=== PATIENT | male | born 1965 | race Caucasian/White ===

== ENCOUNTER → 2017-01-18 06:15 | Day surgery (SDC) | payer OTHER ==
--- NOTE | 2017-01-13 01:31 | HP ---
HISTORY AND PHYSICAL: DATE OF ADMISSION: 01/18/17 She will be in coming into [facility] on 01/18/17 for right knee arthroscopic surgery. CHIEF COMPLAINT: Right knee pain, popping, cracking. HISTORY OF PRESENT ILLNESS: The patient has had right knee problems over many months, at times the right knee feels in the medial joint like something is completely out of place and then it takes a while for it to go back into place. He has had an MRI scan showing a meniscal tear and we have recommended arthroscopic surgery. His knee problems are work related. PAST MEDICAL HISTORY: No heart attack. No chest pain. He is able to walk up 2 flights of stairs without chest pain and without shortness of breath. No allergies. No bleeding tendencies. He has not had any liver or stomach problems. MEDICATIONS: Daily medications, none. PHYSICAL EXAMINATION GENERAL: Well nourished, well developed. He is a little overweight. Cranial nerves are grossly intact. HEENT: Head is NC/AT. LUNGS: Clear bilaterally. HEART: Regular. S1, S2 normal. No murmurs or gallops. ABDOMEN: Round, soft, nontender. There is no organomegaly. MUSCULOSKELETAL: The right knee shows varus tenderness medial, nontender anteriorly and posteriorly, slightly tender laterally. MCL and LCL are stable. Rebecca and posterior drawer are normal. The thigh and calf are soft. Dorsalis pedis pulses 2+. No swelling of his right leg, ankle and foot. IMPRESSION: Right knee medial meniscal tearing. He has some medial arthritis. We have recommended right knee arthroscopic surgery. Goals, risks and complications of surgical care were reviewed with him and his questions were answered and we have not made guarantees about the outcome. For postoperative pain management, he will be utilizing [place] 5/325 mg, a script for 30 has been done, and he knows to use ibuprofen as needed. We will recheck 8 to 12 days after the arthroscopic surgery. [id number]/[facility] #: [id number] PAWEL
[~2017-01-18 06:15] MED LIST: Buffered Lidocaine 1% SYR 3ML* 3 ML/SYR SYRINGE INTRADERM ONE; Bupivacaine 0.5% W/EPI SDV* 30 ML VIAL ONE; Dexamethasone IV* 4 MG/ML 1 ML (4 MG) ONE; DiMENhydriNATE IV* 50 MG/ML VIAL IV PUSH PRN; HYDROcodone/ACETAMIN 5-325 MG* 1 TAB PO PRN; HYDROmorphone INJ* 1 MG/ML CARPUJECT SYRINGE IV PRN; Ketorolac INJ* 30 MG/ML 1 ML VIAL ONE; Midazolam* 1 MG/ML 5 ML VIAL (5 MG) ONE; Ondansetron INJ* 2 MG/ML VIAL IV PRN; Ondansetron INJ* 2 MG/ML VIAL ONE; Propofol* 10 MG/ML 20 ML BTL IV PUSH ONE; ceFAZolin 2 GM PREMIX (*) 2 GM/50 ML BAG IVPB ONE; fentaNYL* 50 MCG/ML 2 ML VIAL (100 MCG VIAL) IV PRN; fentaNYL* 50 MCG/ML 2 ML VIAL (100 MCG VIAL) ONE; oxyCODONE TAB* 5 MG TAB PO PRN
[2017-01-18 09:20] VITALS: BP 139/87
--- NOTE | 2017-01-18 21:26 | OP ---
DATE OF OPERATION: 01/18/17 - [facility] DATE OF : 65 SURGEON: Gregory Mcmahan MD COLD ROLLING COORDINATOR: JACQUELIN Reyes ANESTHESIOLOGIST: Dr. Johann Ricks. ANESTHESIA: LMA, general. PRE-OP DIAGNOSIS: Right knee medial meniscus tear and medial arthritis. POST-OP DIAGNOSIS: Right knee medial meniscus tear and medial arthritis. OPERATIVE PROCEDURE: Right knee partial medial meniscectomy and chondroplasty, medial femoral condyle. COMPLICATIONS: There were no complications. DRAINS: There were no drains. ESTIMATED BLOOD LOSS: 20 mL. REPLACEMENT: Crystalloid fluids. OPERATIVE INDICATIONS: Knee pain. MRI scan showing meniscal tear and arthritic change. Because of persistive problems, arthroscopic surgery was recommended. DESCRIPTION OF PROCEDURE: The patient was brought to the operating room and placed on the operating room table in a supine position. Following the administration of general anesthetic, the right leg was wrapped with a proximal thigh tourniquet and then after a preliminary chlorhexidine prep at the knee, the leg was given a prep from the tourniquet to the ankle and then draped free and carefully sealed off in the usual fashion for arthroscopic surgery of the knee. The leg, ankle, and foot portion was sealed off with an impermeable drape with a Vi-Drape wrapped around the calf at the top of that. We did our universal protocol time-out confirming Spencer Hernandez and a plan for right knee arthroscopic surgery. We all agreed and we proceeded. The right knee was aspirated superolateral to the patella obtaining 1 ounce of clear straw -colored synovial fluid and I did not think that this had to be sent for studies. The knee was set up arthroscopy with the arthroscope. The leg was exsanguinated, the tourniquet elevated to 275. The knee was then set up for arthroscopy with the arthroscope lateral to the patellar tendon, probe and operating instruments medial to the patellar tendon and an in-flow catheter superomedial to the patella. The survey of the joints show that the patellofemoral cartilage had yellowing and some thinning, but no gross flaps or large cartilage loss. The patella and trochlea were both evaluated carefully. The lateral medial gutters showed some debris adherent to the synovial lining and some of this debris irrigated out as we proceeded with the case and at the start of the case when we irrigated with saline. The lateral femoral condyle, lateral meniscus lateral tibial plateau, some yellowing of cartilage, but no gross tearing. The same with the lateral meniscus. The ACL and PCL were satisfactory. There was some anterior synovitis. A little bit of synovectomy was completed out. The medial femoral condyle had cartilage loss showing some bone, no large flap tears and the loose cartilage on the medial femoral condyle was shaved smooth. The medial tibial plateau wear, but no gross flaps or need for surgical care. The medial meniscus had been torn at the root. The posterior flap was somewhat loose, this was trimmed back with shaver and baskets to stable posterior rim. Care was taken not to leave basketted debris in the knee including medially and posteromedially and the final photographs were obtained. The tourniquet was deflated. The knee was irrigated with another 3 L of saline irrigation solution, then emptied, then instilled with Marcaine 0.5% with epinephrine 28 to 30 mL. The skin portals were closed with interrupted 3-0 Surgipro, and the skin was washed and dried and covered with Betadine-soaked release followed by sterile gauze, sterile Webril, cryotherapy cuff, ABD pads, and a 6-inch Quinn bandage loosely applied. The patient was returned to the recovery room in stable and satisfactory condition having tolerated the procedure very well. [id number]/[facility] #: [id number] PAWEL
== END | disposition home or self-care (01) ==
LOC: OR 06:15
PROVIDERS: ATTEND Orthopaedic Surgery
DX: M23.203 Derangement of unspecified medial meniscus due to old tear or injury, right knee (principal); M17.11 Unilateral primary osteoarthritis, right knee; M19.90 Unspecified osteoarthritis, unspecified site; F17.200 Nicotine dependence, unspecified, uncomplicated
CPT/HCPCS: 88304; J0690; J1100; J1885; J2250; J2405; J2704; J3010

== ENCOUNTER 2020-01-26 07:17 | Emergency (ER) | payer SELFPAY ==
[2020-01-26 07:22] VITALS: BP 105/78
--- NOTE | 2020-01-26 07:56 | ED ---
Complex/Multi-Sys Presentation - HPI Summary HPI Summary: This patient is a 54 year old M presenting to [facility] accompanied by with a chief complaint of trouble dysphagia, and trouble eating since 5 weeks ago. At first pt reports he would gag and throw up spit (not stomach content) when eating. Now when pt eats he throw everything up. Pt can drink liquid, however carbonation bothers pt . Pt has lost 20 llbs over last 5 weeks. Pt has not ate solid food for 3 days. Patient denies vomiting outside of eating, diarrhea, and constipation. Pt reports at the beginning stool was dark and hard, but now pt is defecating normally. Pt has not had an endoscopy, or colonoscopy. Pt has not drank alcohol in the last 5 weeks but before would have 6-12 drinks a day. Pt smokes cigarettes and marijuana once in a while. Pt had knee surgery previously. Medications reviewed. Allergies noted. - History Of Current Complaint Chief Complaint: EDGeneral Time Seen by Provider: 01/26/20 07:31 Hx Obtained From: Patient Onset/Duration: Gradual Onset, Lasting Weeks, Still Present Timing: Constant Aggravating Factor(s): Eating Alleviating Factor(s): Nothing Associated Signs And Symptoms: Positive: Vomiting, Decreased Oral Intake. Negative: Diarrhea, Other - Constipation - Allergies/Home Medications Allergies/Adverse Reactions: Allergies Allergy/AdvReac Type Severity Reaction Status Date / Time No Known Allergies Allergy Verified 01/26/20 07:22 Home Medications: Home Medications Naproxen Sodium [Aleve] 2 tab PO Q8H PRN 01/27/16 [History Confirmed 01/18/17] PMH/Surg Hx/FS Hx/Imm Hx Endocrine/Hematology History: Denies: Hx Diabetes Cardiovascular History: Denies: Hx Hypertension, Hx Pacemaker/ICD History: Reports: Hx Kidney Stones - 20 years ago, passed Denies: Hx Renal Disease Musculoskeletal History: Reports: Hx Arthritis - BILATERAL KNEES Sensory History: Reports: Hx Contacts or Glasses - glasses for distance Denies: Hx Hearing Aid Opthamlomology History: Reports: Hx Contacts or Glasses - glasses for distance Psychiatric History: Denies: Hx Panic Disorder - Surgical History Surgery Procedure, Year, and Place: REMOVAL OF SEWING NEEDLE FROM RIGHT FOOT AGE 4 OR 5,. LEFT KNEE - ARTHROSCOPIC -2015, [facility] [place] Anesthesia Reactions: No Infectious Disease History: No Infectious Disease History: Denies: History Other Infectious Disease, Traveled Outside the [place] in Last 30 Days - Family History Known Family History: Positive: None Negative: Hypertension, Diabetes - Social History Occupation: Unemployed Lives: With Family Alcohol Use: Weekly Alcohol Amount: WEEKENDS ONLY Substance Use Type: Reports: None Smoking Status (MU): Heavy Every Day Tobacco Smoker Type: Cigarettes Amount Used/How Often: 1 ppd FOR ABOUT 30 YEARS Length of Time of Smoking/Using Tobacco: 30 YEARS Have You Smoked in the Last Year: Yes Review of Systems Positive: Other - dysphagia, decreased oral intake Positive: Vomiting. Negative: Diarrhea, Other - Constipation All Other Systems Reviewed And Are Negative: Yes Physical Exam - Summary Physical Exam Summary: Constitutional: Well-developed, Well-nourished, Alert. (-) Distressed Skin: Warm, Dry HENT: Normocephalic; Atraumatic Eyes: Conjunctiva normal Neck: Musculoskeletal ROM normal neck. (-) JVD, (-) Stridor, (-) Tracheal deviation Cardio: Rhythm regular, rate normal, Heart sounds normal; Intact distal pulses; Radial pulses are 2+ and symmetric. (-) Murmur Pulmonary/Chest wall: Effort normal. (-) Respiratory distress, (-) Wheezes, (-) Rales Abd: Soft, (-) tenderness, (-) Distension, (-) Guarding, (-) Rebound Musculoskeletal: (-) Edema Lymph: (-) Cervical adenopathy Neuro: Alert, Oriented x3 Psych: Mood and affect Normal Triage Information Reviewed: Yes Vital Signs On Initial Exam: Initial Vitals Temp Pulse Resp BP Pulse Ox 98.5 F 102 19 105/78 100 01/26/20 07:19 01/26/20 07:19 01/26/20 07:19 01/26/20 07:19 01/26/20 07:19 Vital Signs Reviewed: Yes Procedures - Sedation Patient Received Moderate/Deep Sedation with Procedure: No Diagnostics - Vital Signs Vital Signs Temp Pulse Resp BP Pulse Ox 01/26/20 07:19 98.5 F 102 19 105/78 100 - Laboratory Result Diagrams: 01/26/20 08:15 01/26/20 08:15 Lab Statement: Any lab studies that have been ordered have been reviewed, and results considered in the medical decision making process. - Radiology CT Chest/Abdomen/Pelvis Radiology Interpretation Completed By: Radiologist Summary of Radiographic Findings: CT Chest/Abdomen/Pelvis reveals, per radiologist 1. There is a large mid-level paraesophageal soft tissue focus, likely a lymph node, measuring 1 x 2.4 cm in the axial plane in the presence of wall thickening of the distal esophagus that extends across the gastroesophageal junction to involve the superior most wall of the gastric antrum. The differential diagnosis includes esophagitis versus neoplasm. Particularly in the presence of unintentional weight loss and dysphagia with cancer risk factors, direct visualization with endoscopy is recommended. 2. There is a small amount of the canal free fluid in the pelvis of indeterminate clinical significance, though this is not considered a normal finding in an adult male. ED physician has reviewed this radiology report. Re-Evaluation - Re-Evaluation First Eval Re-Evaluation Time: 11:25 Comment: offered Admission, declined will follow up with Dr. Thomason on Tuesday Complex Multi-Symp Course/Dx Course Of Treatment: Patient's here progressive dysphagia over the past 5 weeks. Patient has lost 20 pounds in weight. Patient had blood performed which showed anemia of 11.9 with no prior to compare to. Patient had a CT scan of his chest last abdomen/pelvis which showed thickening of the distal esophagus and paraesophageal lymphadenopathy. Given patient's risk factors and history, patient's scan is concerning for esophageal carcinoma. GI was called and will follow-up with patient on Tuesday. Patient was offered admission but declined. - Diagnoses Provider Diagnoses: Esophageal mass, Dysphagia - Physician Notifications Discussed Care Of Patient With: Ajit Thomason Time Discussed With Above Provider: 11:28 Instructed by Provider To: Other - Dr. Thomason, could scope him on Tuesday, and there is a chance of bringing him in as a outpatient Discharge ED - Sign-Out/Discharge Documenting (check all that apply): Patient Departure - Discharge - Discharge Plan Condition: Stable Disposition: HOME Patient Education Materials: Dysphagia (ED) Referrals: Ajit Thomason MD [Medical Doctor] - 01/28/20 Additional Instructions: Drink pureed foods, ensure is a good sources of vitamins and calories. Call Dr. Alcazar on 01/28/20 for an appointment next week. Return to the ED for any new or worsening symptoms. - Billing Disposition and Condition Condition: STABLE Disposition: Home - Attestation Statements Document Initiated by Scribe: Yes Documenting Scribe: Sandra Zurita Provider For Whom Scribe is Documenting (Include Credential): Mario Mustafa Scribe Attestation: ISandra, scribed for Mario Mustafa on 01/26/20 at 1230. Scribe Documentation Reviewed: Yes Provider Attestation: The documentation as recorded by the Sandra arias accurately reflects the service I personally performed and the decisions made by , Mario Mustafa Status of Scribe Document: Viewed
[2020-01-26 08:30] LABS: ABS Basophils 0.1 10^3/ul (0-0.2); ABS Eosinophils 0.2 10^3/ul (0-0.6); ABS Monocytes 0.9 10^3/ul (0-0.8); Eosinophil % 2.4 %; Hematocrit 33 % (42-52); Hemoglobin 10.9 g/dL (14.0-18.0); Lymphocyte % 19.2 %; Mean Corpuscular HGB Conc 33 g/dL (31-36); Mean Corpuscular Hemoglobin 30 pg (27-31); Mean Corpuscular Volume 90 fL (80-94); Nucleated Red Blood Cells % 0.1; Platelet Count 346 10^3/uL (150-450); Red Blood Count 3.62 10^6 /uL (4.18-5.48); Red Cell Distribution Width 14 % (10-15); White Blood Count 10.2 10^3/uL (3.5-10.8)
[2020-01-26 09:16] LABS: Albumin 3.7 g/dL (3.2-5.2); Albumin/Globulin Ratio 1.3 (1-3); BUN/Creatinine Ratio 19.2 (8-20); Calcium 9.2 mg/dL (8.6-10.3); EGFR African American 95.3 (>60); EGFR Non-African American 78.8 (>60); Globulin 2.9 g/dL (2-4); Potassium 4.4 mmol/L (3.5-5.0); Total Bilirubin 0.4 mg/dL (0.2-1.0); Total Protein 6.6 g/dL (6.4-8.9)
[2020-01-26] MEDS ORDERED: Iohexol 300* (CONTRAST) 10 ML SDV IV ONE (09:39)
[2020-01-26] MEDS ORDERED: NS 0.9% 1000 ML** 1,000 ML IV ONE (11:07)
== END 2020-01-26 12:09 | disposition home or self-care (01) ==
LOC: ED 07:17
DX: K22.2 Esophageal obstruction (principal); R13.10 Dysphagia, unspecified; Z87.442 Personal history of urinary calculi; F17.210 Nicotine dependence, cigarettes, uncomplicated
CPT/HCPCS: 36415; 71260; 74177; 80053; 83690; 85025; 99282; Q9967

== ENCOUNTER 2020-03-18 11:44 | Inpatient (IN) | payer OTHER ==
[2020-03-18 12:33] LABS: Hematocrit 29 % (42-52); Hemoglobin 9.4 g/dL (14.0-18.0); Mean Corpuscular HGB Conc 32 g/dL (31-36); Mean Corpuscular Hemoglobin 25 pg (27-31); Mean Corpuscular Volume 79 fL (80-94); Mean Platelet Volume 7.5 fL (7.4-10.4); Platelet Count 258 10^3/uL (150-450); Red Blood Count 3.69 10^6 /uL (4.18-5.48); Red Cell Distribution Width 21 % (10-15); White Blood Count 7.3 10^3/uL (3.5-10.8)
[2020-03-18 12:36] LABS: ABS Eosinophils 0.1 10^3/ul (0-0.6); ABS Lymphocytes 1.7 10^3/ul (1.0-4.8); ABS Monocytes 0.8 10^3/ul (0-0.8); ABS Neutrophils 4.7 10^3/ul (1.5-7.7); Lymphocyte % 22.8 %; Nucleated Red Blood Cells % 0.2
[2020-03-18 12:48] LABS: Albumin 3.1 g/dL (3.2-5.2); Albumin/Globulin Ratio 1.1 (1-3); Calcium 7.9 mg/dL (8.6-10.3); EGFR African American 120.2 (>60); EGFR Non-African American 99.3 (>60); Globulin 2.8 g/dL (2-4); Potassium 3.8 mmol/L (3.5-5.0); Total Bilirubin 0.5 mg/dL (0.2-1.0); Total Protein 5.9 g/dL (6.4-8.9)
[2020-03-18] MEDS ORDERED: LORazepam INJ* 2 MG/ML 1 ML VIAL ONE (15:30)
[2020-03-18] MEDS ORDERED: Ondansetron INJ* 2 MG/ML VIAL IV PRN (16:10)
[2020-03-18] MEDS ORDERED: LORazepam TAB(*) 0.5 MG PO PRN (16:21)
[2020-03-18] MEDS ORDERED: Diphenoxylat/Atrop 2.5-0.025M* 1 TAB J TUBE PRN (16:21)
[2020-03-18] MEDS ORDERED: OXYCODONE 10 MG PEG TUBE PRN (16:21)
[2020-03-18] MEDS ORDERED: oxyCODONE ORAL.SOLN* 5 MG/5 ML UDC PO PRN (16:32)
[2020-03-18] MEDS ORDERED: Metoprolol Tartrate IV* 1 MG/ML 5 ML VIAL IV ONE (20:00)
[2020-03-18] MEDS: LORazepam TAB(*) 0.5 MG PO PRN (20:31)
[2020-03-18 22:31] LABS: Troponin I 0.34 ng/mL (<0.03)
[2020-03-19] MEDS: LORazepam TAB(*) 0.5 MG PO PRN ×4 (03:35→23:34)
[2020-03-19] MEDS: NS 0.9% 1000 ML** 1,000 ML IV SCH ×2 (03:52→14:06)
[2020-03-19 04:30] LABS: Troponin I 0.31 ng/mL (<0.03)
[2020-03-19] MEDS ORDERED: Perflutren Lipid Microsphere* 3 ML VIAL ONE (07:44)
[2020-03-19] MEDS ORDERED: Metoprolol Tartrate IV* 1 MG/ML 5 ML VIAL IV ONE (08:00)
[2020-03-19 08:25] LABS: ABS Lymphocytes 1.2 10^3/ul (1.0-4.8); ABS Monocytes 0.7 10^3/ul (0-0.8); ABS Neutrophils 3.7 10^3/ul (1.5-7.7); Eosinophil % 0.5 %; Hematocrit 27 % (42-52); Hemoglobin 8.8 g/dL (14.0-18.0); Lymphocyte % 20.5 %; Mean Corpuscular HGB Conc 33 g/dL (31-36); Mean Corpuscular Hemoglobin 26 pg (27-31); Mean Corpuscular Volume 79 fL (80-94); Mean Platelet Volume 7.4 fL (7.4-10.4); Nucleated Red Blood Cells % 0.4; Platelet Count 200 10^3/uL (150-450); Red Blood Count 3.43 10^6 /uL (4.18-5.48); Red Cell Distribution Width 21 % (10-15); White Blood Count 5.6 10^3/uL (3.5-10.8)
[2020-03-19 08:43] LABS: Albumin 2.8 g/dL (3.2-5.2); BUN/Creatinine Ratio 27.1 (8-20); Calcium 7.8 mg/dL (8.6-10.3); EGFR African American 142.2 (>60); EGFR Non-African American 117.5 (>60); Globulin 2.9 g/dL (2-4); Potassium 4.1 mmol/L (3.5-5.0); Total Bilirubin 0.5 mg/dL (0.2-1.0); Total Protein 5.7 g/dL (6.4-8.9)
[2020-03-19] MEDS: Pantoprazole TAB * 40 MG TAB SCH (08:47)
[2020-03-19] MEDS ORDERED: NON FORMULARY MED* (Omeprazole [Omeprazole] 40 MG) PEG TUBE SCH (09:00)
[2020-03-19] MEDS ORDERED: oxyCODONE ORAL.SOLN* 5 MG/5 ML UDC PRN (11:22)
--- NOTE | 2020-03-19 11:35 | PN ---
Progress Note - Progress Note Date of Service: 03/19/20 SOAP: Subjective: [Tired this morning, got little sleep. He hasn't been up and out of bed yet. Denies dizziness, SOB, CP at rest. No diarrhea since admission. Urinating well.] Objective: [ Vital Signs: Temp Pulse Resp BP Pulse Ox 97.4 F 102 20 105/79 98 03/19/20 07:15 03/19/20 07:15 03/19/20 10:11 03/19/20 07:15 03/19/20 07:15 Diphenoxylate HCl/Atropine (Lomotil Tab*) 1 tab J TUBE Q6HR PRN PRN Reason: DIARRHEA Sodium Chloride (Ns 0.9% 1000 Ml) 1,000 mls @ 100 mls/hr IV PER RATE [facility] Last Admin: 03/19/20 03:52 Dose: 100 mls/hr Lorazepam (Ativan Tab(*)) 0.5 mg PO Q6HR PRN PRN Reason: nausea or anxiety Last Admin: 03/19/20 10:11 Dose: 0.5 mg Metoprolol Tartrate (Lopressor Tab*) 12.5 mg J TUBE Q12HR DEVORAH Ondansetron HCl (Zofran Inj*) 4 mg IV Q4H PRN PRN Reason: NAUSEA/VOMITING Oxycodone HCl (Oxycodone Oral.Soln*) 10 mg .SEE ORDER Q4HR PRN PRN Reason: PAIN - MODERATE Pantoprazole Sodium (Protonix Tab*) 40 mg .SEE ORDER DAILY [facility] Last Admin: 03/19/20 08:47 Dose: 40 mg Laboratory Results - last 24 hr 03/18/20 03/18/20 03/18/20 11:05 11:05 16:10 WBC 7.3 RBC 3.69 L Hgb 9.4 L Hct 29 L MCV 79 L MCH 25 L MCHC 32 RDW 21 H Plt Count 258 MPV 7.5 Neut % (Auto) 64.9 Lymph % (Auto) 22.8 Irion % (Auto) 10.7 Eos % (Auto) 1.0 Baso % (Auto) 0.6 Absolute Neuts (auto) 4.7 Absolute Lymphs (auto) 1.7 Absolute Monos (auto) 0.8 Absolute Eos (auto) 0.1 Absolute Basos (auto) 0.0 Absolute Nucleated RBC 0.0 Nucleated RBC % 0.2 Sodium 130 L Potassium 3.8 Chloride 94 L Carbon Dioxide 26 Anion Gap 10 BUN 17 Creatinine 0.81 Est GFR ( Amer) 120.2 Est GFR (Non-Af Amer) 99.3 BUN/Creatinine Ratio 21.0 H Glucose 127 H Calcium 7.9 L Magnesium 2.0 Total Bilirubin 0.50 AST 31 ALT 30 Alkaline Phosphatase 57 Troponin I 0.30 H* Total Protein 5.9 L Albumin 3.1 L Globulin 2.8 Albumin/Globulin Ratio 1.1 Cortisol 03/18/20 03/19/20 03/19/20 22:03 03:57 07:50 WBC 5.6 RBC 3.43 L Hgb 8.8 L Hct 27 L MCV 79 L MCH 26 L MCHC 33 RDW 21 H Plt Count 200 MPV 7.4 Neut % (Auto) 66.4 Lymph % (Auto) 20.5 Irion % (Auto) 12.1 Eos % (Auto) 0.5 Baso % (Auto) 0.5 Absolute Neuts (auto) 3.7 Absolute Lymphs (auto) 1.2 Absolute Monos (auto) 0.7 Absolute Eos (auto) 0.0 Absolute Basos (auto) 0.0 Absolute Nucleated RBC 0.0 Nucleated RBC % 0.4 Sodium Potassium Chloride Carbon Dioxide Anion Gap BUN Creatinine Est GFR ( Amer) Est GFR (Non-Af Amer) BUN/Creatinine Ratio Glucose Calcium Magnesium Total Bilirubin AST ALT Alkaline Phosphatase Troponin I 0.34 H* 0.31 H* Total Protein Albumin Globulin Albumin/Globulin Ratio Cortisol 03/19/20 03/19/20 07:50 10:15 WBC RBC Hgb Hct MCV MCH MCHC RDW Plt Count MPV Neut % (Auto) Lymph % (Auto) Irion % (Auto) Eos % (Auto) Baso % (Auto) Absolute Neuts (auto) Absolute Lymphs (auto) Absolute Monos (auto) Absolute Eos (auto) Absolute Basos (auto) Absolute Nucleated RBC Nucleated RBC % Sodium 133 L Potassium 4.1 Chloride 101 Carbon Dioxide 25 Anion Gap 7 BUN 19 Creatinine 0.70 Est GFR ( Amer) 142.2 Est GFR (Non-Af Amer) 117.5 BUN/Creatinine Ratio 27.1 H Glucose 105 H Calcium 7.8 L Magnesium Total Bilirubin 0.50 AST 54 H ALT 67 H Alkaline Phosphatase 51 Troponin I 0.20 H* Total Protein 5.7 L Albumin 2.8 L Globulin 2.9 Albumin/Globulin Ratio 1.0 Cortisol 17.32 Exam: Gen: chronically ill appearing 54 yo male in NAD HEENT: MMM CV: mildly tachycardic, no murmurs Resp: CTA Abd: J tube in place, soft, nonTTP, active BS Ext: no edema] Assessment: [This is a 54 yo male with metastatic esophageal CA now s/p C2 FOLFOX who presented to the oncology suite with new onset diarrhea, hypotension, and tachycardia. EKG showed a LPFB and RBBB of unknown acuity as there are no old EKGs for comparison but no known cardiac disease. Troponin check was positive at 0.3 and has been stable on repeat. Plan: [1. Hypotension - likely secondary to GI losses, now improved with aggressive hydration - am cortisol normal, will check TSH - check orthostatic VS this am 2. Elevated troponin with conduction delays - no evidence of STEMI, no h/o cardiac disease - remains asymptomatic - repeat EKG remains unchanged - echocardiogram pending - requested cardiology consultation, but he unfortunately is not a candidate for any intervention or even an antiplatelet agent due to a persistently large and bleeding primary esophageal mass - start metoprolol 3. Diarrhea - likely due to chemotherapy toxicity v tube feeding - C.diff testing requested, but low suspicion 4. Metastatic esophageal CA - under the care of Dr Champagne and s/p C2 FOLFOX - has required intermittent blood transfusions due to GIB from primary esophageal lesion - most recent was 03/14 Dispo: dc plan based on echo findings and how he does symptomatically once he is up and active in his room. Goal is to get home [place].
[2020-03-19] MEDS ORDERED: Metoprolol Tartrate TAB* 25 MG J TUBE SCH (12:00)
[2020-03-19 12:03] LABS: TSH (Thyroid Stimulating Horm) 2.25 mcIU/mL (0.34-5.60)
--- NOTE | 2020-03-19 13:11 | ECHO ---
*[facility]* [place] [address] Fax #: [phone] Transthoracic Echocardiogram Patient: Spencer Hernandez : 1965 Study Date: 03/19/2020 Age: 54 Gender: M HR: 103 bpm Height: 72 in /182.9 cm BSA: 2.15 m^2 Weight: 204.6 lb /93 kg BMI: 27.8 kg/m^2 *Dump Truck Operator: * Mayela Elliott [facility] *Referring Physician: * Jose Champagne *Reading Physician: * Amanda Traore MD Indications: Abnormal EKG. History: Esophageal cancer, chemotherapy. Risk factors: Current tobacco use. Conclusions Summary: - Left ventricle: The cavity size is mildly reduced. Wall thickness is moderately increased. Systolic function is normal. The estimated ejection fraction is 55-60%. - Right ventricle: The cavity size is moderately to severely dilated. Systolic function is severely reduced. - Ventricular septum: There is septal flattening of the interventricular septum consistent with RV volume or pressure overload. - Mitral valve: There is trace regurgitation. - Tricuspid valve: There is mild-moderate regurgitation. - Pulmonary arteries: Systolic pressure is increased. Pulmonary artery pressure may be underestimated The peak pressure during systole by Doppler is 41.0 mm Hg. - No prior echocardiogram to compare. Study data: Transthoracic echocardiogram. Procedure: Transthoracic echocardiography was performed. Image quality was adequate. Intravenous Definity , 2 mlswas administered. Complete 2D, spectral Doppler, and color flow Doppler. Location: Bedside. Patient status: Inpatient. Patient room number: 433. Rhythm: Tachycardia. Findings Left ventricle: The cavity size is mildly reduced. Wall thickness is moderately increased. Systolic function is normal. The estimated ejection fraction is 55-60%. Wall motion is normal; there are no regional wall motion abnormalities. Doppler parameters are consistent with abnormal left ventricular relaxation (grade 1 diastolic dysfunction). Right ventricle: The cavity size is moderately to severely dilated. Systolic function is severely reduced. Ventricular septum: There is septal flattening of the interventricular septum consistent with RV volume or pressure overload. Left atrium: The atrium is moderately dilated. Right atrium: The atrium is moderately dilated. Mitral valve: The leaflets are mildly thickened. Mild prolapse, involving the anterior leaflet. There is no evidence of stenosis. There is trace regurgitation. Aortic valve: The valve is trileaflet. The leaflets are normal thickness. There is no evidence of stenosis. There is no significant regurgitation. Tricuspid valve: The leaflets are normal thickness. There is no evidence of stenosis. There is mild-moderate regurgitation. Pulmonic valve: The leaflets are normal thickness. There is no evidence of stenosis. There is trace regurgitation. Aorta: The aortic root appears normal. The aortic arch appears normal. Pericardium: A trace pericardial effusion is identified. Pulmonary arteries: Systolic pressure is increased. Pulmonary artery pressure may be underestimated Systemic veins: Inferior vena cava: The vessel is dilated. Respirophasic changes in dimension are absent. Measurements Left ventricle Value Ref Aortic valve continued Value Ref VINCENT, LAX (L) 3.5 cm 4.2 - 5.8 VTI, S 16.0 cm --------- ESD, LAX (L) 2.4 cm 2.5 - 4.0 Mean grad, S 2.0 mm Hg --------- FS, LAX 31 % 25 - 43 Peak grad, S 3.0 mm Hg --------- PW, ED, LAX (H) 1.5 cm 0.6 - 1.0 LVOT/AV, VTI 0.56 --------- E', lat jessica, TDI (L) 7.1 cm/sec >=10.0 ratio E/e', lat jessica, 7 TDI Mitral valve Value Ref E', med jessica, TDI 7.9 cm/sec >=7.0 Peak E 0.5 m/sec - -------- E/e', med jessica, 6 Peak A 0.63 m/sec ---- ----- TDI Decel time 69 ms --------- E', avg, TDI 7.5 cm/sec Peak E/A ratio 0.8 ---- ----- E/e', avg, TDI 7 <=14 Pulmonic valve Value Ref LVOT Value Ref Peak v, S 0.49 m/sec --------- Peak aries, S 0.6 m/sec Peak grad, S 1.0 mm Hg --------- VTI, S 9.0 cm Peak grad, S 1 mm Hg Tricuspid valve Value Ref Mean grad, S 1 mm Hg TR peak v 2.62 m/sec <=2.8 Peak RV-RA grad, 27 mm Hg --------- Ventricular septum Value Ref S IVS, ED (H) 1.5 cm 0.6 - 1.0 Aortic root Value Ref Right ventricle Value Ref Root diam 3.4 cm <4.3 VINCENT, LAX 4.5 cm Root max 1.6 cm/m^2 1.3 - 2.1 VINCENT minor ax, A4C (H) 5.9 cm 1.9 - 3.5 diam/bsa, ED mid Pressure, S 42 mm Hg Ascending aorta Value Ref AAo AP diam, S 3.1 cm --------- Left atrium Value Ref AAo AP diam/bsa, 1.4 cm/m^2 --------- AP dim, ES 3.50 cm 3.00 - S 4.00 ML dim, A4C 4.3 cm Aortic arch Value Ref SI dim, A4C 6.2 cm Arch diam 3.4 cm --------- Vol/bsa, ES, A/L (H) 44 ml/m^2 16 - 34 Arch diam/bsa 1.6 cm/m^2 --------- Right atrium Value Ref Decending aorta Value Ref SI dim, ES 5.1 cm 3.4 - 5.3 Margarette peak aries 0.62 m/sec --------- ML dim, ES, A4C (H) 5.7 cm 2.6 - 4.4 Estimated RAP 15 mm Hg Pulmonary artery Value Ref Pressure, S 41.0 mm Hg --------- Aortic valve Value Ref Jessica diam, ED 2.4 cm Inferior vena cava Value Ref Peak v, S 0.91 m/sec Diam 2.3 cm --------- Legend: (L) and (H) sonja values outside specified reference range. Prepared and electronically signed by Amanda Traore MD 03/19/2020 13:10
[2020-03-19] MEDS ORDERED: Iohexol 350* (CONTRAST) 500 ML MDV IV ONE (13:32)
[2020-03-19] MEDS: Heparin DRIP 25,000 UNITS(*) 25,000 UNITS/500 ML BAG IV SCH (18:02)
[2020-03-19] MEDS: Heparin VIAL(*) 5000 UNITS/ML VIAL (FIVE THOUSAND) IV SCH (18:02)
[2020-03-20] MEDS: Heparin VIAL(*) 5000 UNITS/ML VIAL (FIVE THOUSAND) IV SCH ×2 (00:53→14:32)
[2020-03-20] MEDS: NS 0.9% 1000 ML** 1,000 ML IV SCH ×2 (02:07→12:31)
[2020-03-20 07:38] LABS: Hematocrit 26 % (42-52); Hemoglobin 8.3 g/dL (14.0-18.0); Mean Corpuscular HGB Conc 33 g/dL (31-36); Mean Corpuscular Hemoglobin 26 pg (27-31); Mean Corpuscular Volume 79 fL (80-94); Mean Platelet Volume 7.7 fL (7.4-10.4); Platelet Count 210 10^3/uL (150-450); Red Blood Count 3.25 10^6 /uL (4.18-5.48); Red Cell Distribution Width 21 % (10-15); White Blood Count 6.5 10^3/uL (3.5-10.8)
[2020-03-20] MEDS: Heparin DRIP 25,000 UNITS(*) 25,000 UNITS/500 ML BAG IV SCH ×2 (08:23→20:38)
[2020-03-20] MEDS: Pantoprazole TAB * 40 MG TAB SCH ×3 (08:24→08:36)
[2020-03-20] MEDS: LORazepam TAB(*) 0.5 MG PO PRN ×3 (08:24→20:36)
[2020-03-20 08:31] LABS: ABS Lymphocytes 1.4 10^3/ul (1.0-4.8); ABS Monocytes 0.9 10^3/ul (0-0.8); Eosinophil % 0.5 %; Lymphocyte % 22.3 %; Nucleated Red Blood Cells % 0.2
--- NOTE | 2020-03-20 08:50 | PN ---
Progress Note - Progress Note Date of Service: 03/20/20 SOAP: Subjective: Denies dypnea nor chest pain Dysphagia persists and reports unchanged CT with bilateral PE Dopplers with right popliteal DVT and left Femoral Now on IV Heparin Objective: Alert and oriented Cardiac mild tachycardia Lungs scattered rhonchi Abdomen soft and nontender with PEG Neuro grossly nonfocal Extremities w.o CCE Vital Signs - 8 hr 03/20/20 03/20/20 03/20/20 03:06 03:07 03:45 Temperature 97.6 F Pulse Rate 109 Respiratory 18 18 16 Rate Blood Pressure 109/74 (mmHg) O2 Sat by Pulse 96 Oximetry 03/20/20 03/20/20 03/20/20 05:56 06:17 08:24 Temperature Pulse Rate Respiratory 16 16 18 Rate Blood Pressure (mmHg) O2 Sat by Pulse Oximetry 03/20/20 03/20/20 08:34 08:35 Temperature Pulse Rate Respiratory 18 18 Rate Blood Pressure (mmHg) O2 Sat by Pulse Oximetry Laboratory Results - last 24 hr 03/19/20 03/19/20 03/19/20 07:50 10:15 17:32 WBC RBC Hgb Hct MCV MCH MCHC RDW Plt Count MPV Neut % (Auto) Lymph % (Auto) [place] % (Auto) Eos % (Auto) Baso % (Auto) Absolute Neuts (auto) Absolute Lymphs (auto) Absolute Monos (auto) Absolute Eos (auto) Absolute Basos (auto) Absolute Nucleated RBC Nucleated RBC % APTT 26.5 Sodium 133 L Potassium 4.1 Chloride 101 Carbon Dioxide 25 Anion Gap 7 BUN 19 Creatinine 0.70 Est GFR ( Amer) 142.2 Est GFR (Non-Af Amer) 117.5 BUN/Creatinine Ratio 27.1 H Glucose 105 H Calcium 7.8 L Total Bilirubin 0.50 AST 54 H ALT 67 H Alkaline Phosphatase 51 Troponin I 0.20 H* Total Protein 5.7 L Albumin 2.8 L Globulin 2.9 Albumin/Globulin Ratio 1.0 TSH 2.25 Cortisol 17.32 03/19/20 03/20/20 03/20/20 23:40 07:15 07:15 WBC 6.5 RBC 3.25 L Hgb 8.3 L Hct 26 L MCV 79 L MCH 26 L MCHC 33 RDW 21 H Plt Count 210 MPV 7.7 Neut % (Auto) 62.1 Lymph % (Auto) 22.3 [place] % (Auto) 14.7 Eos % (Auto) 0.5 Baso % (Auto) 0.4 Absolute Neuts (auto) 4.0 Absolute Lymphs (auto) 1.4 Absolute Monos (auto) 0.9 H Absolute Eos (auto) 0.0 Absolute Basos (auto) 0.0 Absolute Nucleated RBC 0.0 Nucleated RBC % 0.2 APTT 38.9 H 72.0 H Sodium Potassium Chloride Carbon Dioxide Anion Gap BUN Creatinine Est GFR ( Amer) Est GFR (Non-Af Amer) BUN/Creatinine Ratio Glucose Calcium Total Bilirubin AST ALT Alkaline Phosphatase Troponin I Total Protein Albumin Globulin Albumin/Globulin Ratio TSH Cortisol Intake and Output Last 24 Hours 03/18/20 03/19/20 03/20/20 03/21/20 06:59 06:59 06:59 06:59 Intake Total 960 1801 Output Total 0 675 Balance 960 1126 Weight 205 lb 205 lb Intake: IV Fluids 960 1501 NS (0.9%) 960 1501 Medicated IV 200 Heparin 200 Oral 0 100 Output: Urine 0 675 Other: Date of Last Bowel 0 Movement Estimated Stool Amount Small Diphenoxylate HCl/Atropine (Lomotil Tab*) 1 tab J TUBE Q6HR PRN PRN Reason: DIARRHEA Heparin Sodium (Porcine) (Heparin Vial(*)) 0 units IV .FOR HEPARIN BOLUSES [facility] Last Admin: 03/20/20 00:53 Dose: 7,000 units Sodium Chloride (Ns 0.9% 1000 Ml) 1,000 mls @ 100 mls/hr IV PER RATE [facility] Last Admin: 03/20/20 02:07 Dose: 100 mls/hr Heparin Sodium/Dextrose (Heparin Drip 25,000 Units(*)) 25,000 units in 500 mls @ 0 mls/hr IV PER RATE [facility]; Protocol Last Admin: 03/20/20 08:23 Dose: 40 mls/hr Lorazepam (Ativan Tab(*)) 0.5 mg PO Q6HR PRN PRN Reason: nausea or anxiety Last Admin: 03/20/20 08:24 Dose: 0.5 mg Ondansetron HCl (Zofran Inj*) 4 mg IV Q4H PRN PRN Reason: NAUSEA/VOMITING Oxycodone HCl (Oxycodone Oral.Soln*) 10 mg .SEE ORDER Q4HR PRN PRN Reason: PAIN - MODERATE Pantoprazole Sodium (Protonix Tab*) 40 mg .SEE ORDER DAILY [facility] Last Admin: 03/20/20 08:36 Dose: 40 mg Assessment: 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
[2020-03-20 20:36] LABS: Hematocrit 27 % (42-52); Hemoglobin 8.5 g/dL (14.0-18.0)
[2020-03-21] MEDS: LORazepam TAB(*) 0.5 MG PO PRN ×4 (01:48→19:28)
[2020-03-21] MEDS: NS 0.9% 1000 ML** 1,000 ML IV SCH ×2 (01:50→15:14)
[2020-03-21 05:18] LABS: Hematocrit 25 % (42-52); Hemoglobin 8.1 g/dL (14.0-18.0); Mean Corpuscular HGB Conc 32 g/dL (31-36); Mean Corpuscular Hemoglobin 25 pg (27-31); Mean Corpuscular Volume 78 fL (80-94); Mean Platelet Volume 7.4 fL (7.4-10.4); Platelet Count 197 10^3/uL (150-450); Red Blood Count 3.22 10^6 /uL (4.18-5.48); Red Cell Distribution Width 21 % (10-15)
[2020-03-21 05:35] LABS: Albumin 2.6 g/dL (3.2-5.2); BUN/Creatinine Ratio 22.8 (8-20); Calcium 7.6 mg/dL (8.6-10.3); EGFR African American 180.2 (>60); Globulin 2.6 g/dL (2-4); Potassium 3.6 mmol/L (3.5-5.0); Total Bilirubin 0.4 mg/dL (0.2-1.0); Total Protein 5.2 g/dL (6.4-8.9)
[2020-03-21 05:42] LABS: ABS Lymphocytes 1.6 10^3/ul (1.0-4.8); ABS Monocytes 0.9 10^3/ul (0-0.8); ABS Neutrophils 4.4 10^3/ul (1.5-7.7); Eosinophil % 0.5 %; Lymphocyte % 22.5 %; Nucleated Red Blood Cells % 0.2; Polychromasia 2+
[2020-03-21] MEDS: Heparin DRIP 25,000 UNITS(*) 25,000 UNITS/500 ML BAG IV SCH ×2 (08:18→19:29)
[2020-03-21] MEDS: Pantoprazole TAB * 40 MG TAB SCH (08:18)
--- NOTE | 2020-03-21 08:31 | PN ---
Progress Note - Progress Note Date of Service: 03/21/20 SOAP: Subjective: Feels a little stronger today Denies Chest pain nor dyspnea Denies Melena nor bright red blood per rectum On the phone with Zari Current Hg 8.1 PTT 67 Objective: Alert and oriented Neck supple Cardiac minimal tachycardia Lungs CTA anteriorly Abdomen soft and nontender, J tube in place neuro grossly nonfocal Extremities w/o CCE 03/18/20 03/18/20 03/18/20 11:05 11:05 16:10 WBC 7.3 RBC 3.69 L Hgb 9.4 L Hct 29 L MCV 79 L MCH 25 L MCHC 32 RDW 21 H Plt Count 258 MPV 7.5 Neut % (Auto) 64.9 Lymph % (Auto) 22.8 Hitchcock % (Auto) 10.7 Eos % (Auto) 1.0 Baso % (Auto) 0.6 Absolute Neuts (auto) 4.7 Absolute Lymphs (auto) 1.7 Absolute Monos (auto) 0.8 Absolute Eos (auto) 0.1 Absolute Basos (auto) 0.0 Absolute Nucleated RBC 0.0 Nucleated RBC % 0.2 Polychromasia Hypochromasia Anisocytosis Elliptocytes APTT Sodium 130 L Potassium 3.8 Chloride 94 L Carbon Dioxide 26 Anion Gap 10 BUN 17 Creatinine 0.81 Est GFR ( Amer) 120.2 Est GFR (Non-Af Amer) 99.3 BUN/Creatinine Ratio 21.0 H Glucose 127 H Calcium 7.9 L Magnesium 2.0 Total Bilirubin 0.50 AST 31 ALT 30 Alkaline Phosphatase 57 Troponin I 0.30 H* Total Protein 5.9 L Albumin 3.1 L Globulin 2.8 Albumin/Globulin Ratio 1.1 TSH Cortisol 03/18/20 03/19/20 03/19/20 22:03 03:57 07:50 WBC 5.6 RBC 3.43 L Hgb 8.8 L Hct 27 L MCV 79 L MCH 26 L MCHC 33 RDW 21 H Plt Count 200 MPV 7.4 Neut % (Auto) 66.4 Lymph % (Auto) 20.5 Hitchcock % (Auto) 12.1 Eos % (Auto) 0.5 Baso % (Auto) 0.5 Absolute Neuts (auto) 3.7 Absolute Lymphs (auto) 1.2 Absolute Monos (auto) 0.7 Absolute Eos (auto) 0.0 Absolute Basos (auto) 0.0 Absolute Nucleated RBC 0.0 Nucleated RBC % 0.4 Polychromasia Hypochromasia Anisocytosis Elliptocytes APTT Sodium Potassium Chloride Carbon Dioxide Anion Gap BUN Creatinine Est GFR ( Amer) Est GFR (Non-Af Amer) BUN/Creatinine Ratio Glucose Calcium Magnesium Total Bilirubin AST ALT Alkaline Phosphatase Troponin I 0.34 H* 0.31 H* Total Protein Albumin Globulin Albumin/Globulin Ratio TSH Cortisol 03/19/20 03/19/20 03/19/20 07:50 10:15 17:32 WBC RBC Hgb Hct MCV MCH MCHC RDW Plt Count MPV Neut % (Auto) Lymph % (Auto) [place] % (Auto) Eos % (Auto) Baso % (Auto) Absolute Neuts (auto) Absolute Lymphs (auto) Absolute Monos (auto) Absolute Eos (auto) Absolute Basos (auto) Absolute Nucleated RBC Nucleated RBC % Polychromasia Hypochromasia Anisocytosis Elliptocytes APTT 26.5 Sodium 133 L Potassium 4.1 Chloride 101 Carbon Dioxide 25 Anion Gap 7 BUN 19 Creatinine 0.70 Est GFR ( Amer) 142.2 Est GFR (Non-Af Amer) 117.5 BUN/Creatinine Ratio 27.1 H Glucose 105 H Calcium 7.8 L Magnesium Total Bilirubin 0.50 AST 54 H ALT 67 H Alkaline Phosphatase 51 Troponin I 0.20 H* Total Protein 5.7 L Albumin 2.8 L Globulin 2.9 Albumin/Globulin Ratio 1.0 TSH 2.25 Cortisol 17.32 03/19/20 03/20/20 03/20/20 23:40 07:15 07:15 WBC 6.5 RBC 3.25 L Hgb 8.3 L Hct 26 L MCV 79 L MCH 26 L MCHC 33 RDW 21 H Plt Count 210 MPV 7.7 Neut % (Auto) 62.1 Lymph % (Auto) 22.3 [place]cock % (Auto) 14.7 Eos % (Auto) 0.5 Baso % (Auto) 0.4 Absolute Neuts (auto) 4.0 Absolute Lymphs (auto) 1.4 Absolute Monos (auto) 0.9 H Absolute Eos (auto) 0.0 Absolute Basos (auto) 0.0 Absolute Nucleated RBC 0.0 Nucleated RBC % 0.2 Polychromasia Hypochromasia Anisocytosis Elliptocytes APTT 38.9 H 72.0 H Sodium Potassium Chloride Carbon Dioxide Anion Gap BUN Creatinine Est GFR ( Amer) Est GFR (Non-Af Amer) BUN/Creatinine Ratio Glucose Calcium Magnesium Total Bilirubin AST ALT Alkaline Phosphatase Troponin I Total Protein Albumin Globulin Albumin/Globulin Ratio TSH Cortisol 03/20/20 03/20/20 03/20/20 13:39 20:29 20:29 WBC RBC Hgb 8.5 L Hct 27 L MCV MCH MCHC RDW Plt Count MPV Neut % (Auto) Lymph % (Auto) [place] % (Auto) Eos % (Auto) Baso % (Auto) Absolute Neuts (auto) Absolute Lymphs (auto) Absolute Monos (auto) Absolute Eos (auto) Absolute Basos (auto) Absolute Nucleated RBC Nucleated RBC % Polychromasia Hypochromasia Anisocytosis Elliptocytes APTT 51.8 H 67.8 H Sodium Potassium Chloride Carbon Dioxide Anion Gap BUN Creatinine Est GFR ( Amer) Est GFR (Non-Af Amer) BUN/Creatinine Ratio Glucose Calcium Magnesium Total Bilirubin AST ALT Alkaline Phosphatase Troponin I Total Protein Albumin Globulin Albumin/Globulin Ratio TSH Cortisol 03/21/20 03/21/20 03/21/20 02:39 05:02 05:02 WBC 7.0 RBC 3.22 L Hgb 8.1 L Hct 25 L MCV 78 L MCH 25 L MCHC 32 RDW 21 H Plt Count 197 MPV 7.4 Neut % (Auto) 63.3 Lymph % (Auto) 22.5 [place]cock % (Auto) 13.3 Eos % (Auto) 0.5 Baso % (Auto) 0.4 Absolute Neuts (auto) 4.4 Absolute Lymphs (auto) 1.6 Absolute Monos (auto) 0.9 H Absolute Eos (auto) 0.0 Absolute Basos (auto) 0.0 Absolute Nucleated RBC 0.0 Nucleated RBC % 0.2 Polychromasia 2+ Hypochromasia 1+ Anisocytosis 2+ Elliptocytes 1+ APTT 67.0 H Sodium 132 L Potassium 3.6 Chloride 101 Carbon Dioxide 25 Anion Gap 6 BUN 13 Creatinine 0.57 L Est GFR ( Amer) 180.2 Est GFR (Non-Af Amer) 149.0 BUN/Creatinine Ratio 22.8 H Glucose 119 H Calcium 7.6 L Magnesium Total Bilirubin 0.40 AST 46 H ALT 82 H Alkaline Phosphatase 48 Troponin I Total Protein 5.2 L Albumin 2.6 L Globulin 2.6 Albumin/Globulin Ratio 1.0 TSH Cortisol Laboratory Results - last 24 hr 03/20/20 03/20/20 03/20/20 07:15 13:39 20:29 WBC RBC Hgb 8.5 L Hct 27 L MCV MCH MCHC RDW Plt Count MPV Neut % (Auto) 62.1 Lymph % (Auto) 22.3 [place]cock % (Auto) 14.7 Eos % (Auto) 0.5 Baso % (Auto) 0.4 Absolute Neuts (auto) 4.0 Absolute Lymphs (auto) 1.4 Absolute Monos (auto) 0.9 H Absolute Eos (auto) 0.0 Absolute Basos (auto) 0.0 Absolute Nucleated RBC 0.0 Nucleated RBC % 0.2 Polychromasia Hypochromasia Anisocytosis Elliptocytes APTT 51.8 H Sodium Potassium Chloride Carbon Dioxide Anion Gap BUN Creatinine Est GFR ( Amer) Est GFR (Non-Af Amer) BUN/Creatinine Ratio Glucose Calcium Total Bilirubin AST ALT Alkaline Phosphatase Total Protein Albumin Globulin Albumin/Globulin Ratio 03/20/20 03/21/20 03/21/20 20:29 02:39 05:02 WBC 7.0 RBC 3.22 L Hgb 8.1 L Hct 25 L MCV 78 L MCH 25 L MCHC 32 RDW 21 H Plt Count 197 MPV 7.4 Neut % (Auto) 63.3 Lymph % (Auto) 22.5 [place]cock % (Auto) 13.3 Eos % (Auto) 0.5 Baso % (Auto) 0.4 Absolute Neuts (auto) 4.4 Absolute Lymphs (auto) 1.6 Absolute Monos (auto) 0.9 H Absolute Eos (auto) 0.0 Absolute Basos (auto) 0.0 Absolute Nucleated RBC 0.0 Nucleated RBC % 0.2 Polychromasia 2+ Hypochromasia 1+ Anisocytosis 2+ Elliptocytes 1+ APTT 67.8 H 67.0 H Sodium Potassium Chloride Carbon Dioxide Anion Gap BUN Creatinine Est GFR ( Amer) Est GFR (Non-Af Amer) BUN/Creatinine Ratio Glucose Calcium Total Bilirubin AST ALT Alkaline Phosphatase Total Protein Albumin Globulin Albumin/Globulin Ratio 03/21/20 05:02 WBC RBC Hgb Hct MCV MCH MCHC RDW Plt Count MPV Neut % (Auto) Lymph % (Auto) [place] % (Auto) Eos % (Auto) Baso % (Auto) Absolute Neuts (auto) Absolute Lymphs (auto) Absolute Monos (auto) Absolute Eos (auto) Absolute Basos (auto) Absolute Nucleated RBC Nucleated RBC % Polychromasia Hypochromasia Anisocytosis Elliptocytes APTT Sodium 132 L Potassium 3.6 Chloride 101 Carbon Dioxide 25 Anion Gap 6 BUN 13 Creatinine 0.57 L Est GFR ( Amer) 180.2 Est GFR (Non-Af Amer) 149.0 BUN/Creatinine Ratio 22.8 H Glucose 119 H Calcium 7.6 L Total Bilirubin 0.40 AST 46 H ALT 82 H Alkaline Phosphatase 48 Total Protein 5.2 L Albumin 2.6 L Globulin 2.6 Albumin/Globulin Ratio 1.0 Intake and Output Last 24 Hours 03/19/20 03/20/20 03/21/20 03/22/20 06:59 06:59 06:59 06:59 Intake Total 960 1801 7414 Output Total 0 675 Balance 960 1126 7414 Weight 205 lb 205 lb Intake: IV Fluids 960 1501 2243 NS (0.9%) 960 1501 2243 Medicated IV 200 Heparin 200 Heparin 1254 Oral 0 100 0 Tube Feeding 2244 Tube Feeding Flush Amount 1673 Output: Urine 0 675 Other: Estimated Void Medium Date of Last Bowel 0 Movement # Bowel Movements 1 Estimated Stool Amount Small Small # Voids 1 Diphenoxylate HCl/Atropine (Lomotil Tab*) 1 tab J TUBE Q6HR PRN PRN Reason: DIARRHEA Heparin Sodium (Porcine) (Heparin Vial(*)) 0 units IV .FOR HEPARIN BOLUSES [facility] Last Admin: 03/20/20 14:32 Dose: 3,500 units Heparin Sodium/Dextrose (Heparin Drip 25,000 Units(*)) 25,000 units in 500 mls @ 0 mls/hr IV PER RATE [facility]; Protocol Last Admin: 03/21/20 08:18 Dose: 44 mls/hr Sodium Chloride (Ns 0.9% 1000 Ml) 1,000 mls @ 75 mls/hr IV PER RATE [facility] Last Admin: 03/21/20 01:50 Dose: 75 mls/hr Lorazepam (Ativan Tab(*)) 0.5 mg PO Q6HR PRN PRN Reason: nausea or anxiety Last Admin: 03/21/20 08:18 Dose: 0.5 mg Ondansetron HCl (Zofran Inj*) 4 mg IV Q4H PRN PRN Reason: NAUSEA/VOMITING Oxycodone HCl (Oxycodone Oral.Soln*) 10 mg .SEE ORDER Q4HR PRN PRN Reason: PAIN - MODERATE Pantoprazole Sodium (Protonix Tab*) 40 mg .SEE ORDER DAILY [facility] Last Admin: 03/21/20 08:18 Dose: 40 mg Assessment: Metastatic GE Junction Adenocarcinoma HER2 NEGATIVE post 2 cycles FOLFOX, Cycle III due 03/25/2020 Bilateral Pulmonary Embolism and lower extremity DVT related to malignancy and immobility Generalized deconditioning Dysphagia requiring J-Tube placement for nutritional support Troponin leak and tachycardia secondary to number 2 Improving volume contraction Plan: Extensive discussion with patient and prior discussions with significant other Zari Continue IV Heparin for now, follow PTT and adjust to protocol. Monitor Hg Continue J Tube feeding Continue Analgesia and Anxiolytics Continue gentle hydration Increase Activity, PT evaluation, gradual ambulation Goal DC Tuesday with LMWH if no significant bleeding and continued clinical improvement Will likely delay cycle III FOLFOX pending repeat PET imaging early next week . Patient and significant other desire imaging at this interval to decide whether or not to proceed to any additional active therapy for his Gastroesophageal junction Adenocarcinoma
[2020-03-22] MEDS: NS 0.9% 1000 ML** 1,000 ML IV SCH ×2 (01:13→15:20)
[2020-03-22] MEDS: LORazepam TAB(*) 0.5 MG PO PRN ×4 (01:29→20:16)
[2020-03-22 05:04] LABS: ABS Basophils 0.1 10^3/ul (0-0.2); ABS Eosinophils 0.1 10^3/ul (0-0.6); ABS Lymphocytes 1.1 10^3/ul (1.0-4.8); ABS Monocytes 0.8 10^3/ul (0-0.8); ABS Neutrophils 4.5 10^3/ul (1.5-7.7); Eosinophil % 0.8 %; Hematocrit 24 % (42-52); Hemoglobin 7.9 g/dL (14.0-18.0); Lymphocyte % 16.4 %; Mean Corpuscular HGB Conc 33 g/dL (31-36); Mean Corpuscular Hemoglobin 26 pg (27-31); Mean Corpuscular Volume 79 fL (80-94); Mean Platelet Volume 7.4 fL (7.4-10.4); Nucleated Red Blood Cells % 0.1; Platelet Count 179 10^3/uL (150-450); Red Cell Distribution Width 22 % (10-15); White Blood Count 6.5 10^3/uL (3.5-10.8)
[2020-03-22] MEDS: Heparin DRIP 25,000 UNITS(*) 25,000 UNITS/500 ML BAG IV SCH ×2 (06:14→18:00)
--- NOTE | 2020-03-22 07:21 | PN ---
Progress Note - Progress Note Date of Service: 03/22/20 SOAP: Subjective: very winded when I first came in room but had been moving around in bed. + epistaxis, mild, this is not a new problem for him. tolerating tube feeds well. Objective: Vital Signs Temp Pulse Resp BP Pulse Ox 97.6 F 89 18 118/72 97 03/22/20 03:15 03/22/20 03:15 03/22/20 03:15 03/22/20 03:15 03/22/20 03:15 perr eomi op moist dec bs r base rrr soft nt clean PEG site no le edema a+O x 3, nonfocal neuro exam no demetrio Laboratory Results - last 24 hr 03/22/20 03/22/20 04:50 04:50 WBC 6.5 RBC 3.00 L Hgb 7.9 L Hct 24 L MCV 79 L MCH 26 L MCHC 33 RDW 22 H Plt Count 179 MPV 7.4 Neut % (Auto) 69.4 Lymph % (Auto) 16.4 [place] % (Auto) 12.5 Eos % (Auto) 0.8 Baso % (Auto) 0.9 Absolute Neuts (auto) 4.5 Absolute Lymphs (auto) 1.1 Absolute Monos (auto) 0.8 Absolute Eos (auto) 0.1 Absolute Basos (auto) 0.1 Absolute Nucleated RBC 0.0 Nucleated RBC % 0.1 APTT 65.2 H Diphenoxylate HCl/Atropine (Lomotil Tab*) 1 tab J TUBE Q6HR PRN PRN Reason: DIARRHEA Heparin Sodium (Porcine) (Heparin Vial(*)) 0 units IV .FOR HEPARIN BOLUSES [facility] Last Admin: 03/20/20 14:32 Dose: 3,500 units Heparin Sodium/Dextrose (Heparin Drip 25,000 Units(*)) 25,000 units in 500 mls @ 0 mls/hr IV PER RATE [facility]; Protocol Last Admin: 03/22/20 06:14 Dose: 44 mls/hr Sodium Chloride (Ns 0.9% 1000 Ml) 1,000 mls @ 75 mls/hr IV PER RATE [facility] Last Admin: 03/22/20 01:13 Dose: 75 mls/hr Lorazepam (Ativan Tab(*)) 0.5 mg PO Q6HR PRN PRN Reason: nausea or anxiety Last Admin: 03/22/20 01:29 Dose: 0.5 mg Ondansetron HCl (Zofran Inj*) 4 mg IV Q4H PRN PRN Reason: NAUSEA/VOMITING Oxycodone HCl (Oxycodone Oral.Soln*) 10 mg .SEE ORDER Q4HR PRN PRN Reason: PAIN - MODERATE Pantoprazole Sodium (Protonix Tab*) 40 mg .SEE ORDER DAILY [facility] Last Admin: 03/21/20 08:18 Dose: 40 mg Assessment: 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 Plan: Plan to keep on heparin drip over weekend and if no evidence of significant bleeding will transition to lovenox and d/c on Tuesday -PT consult -check ambulatory O2 sats -cont J tube feeding -cont PPI -plan for outpatient PET next week to determine next course of action full code
[2020-03-22] MEDS: Pantoprazole TAB * 40 MG TAB SCH (08:00)
[2020-03-23] MEDS: LORazepam TAB(*) 0.5 MG PO PRN ×4 (00:15→18:25)
[2020-03-23] MEDS: NS 0.9% 1000 ML** 1,000 ML IV SCH ×2 (05:09→18:26)
[2020-03-23 05:27] LABS: ABS Eosinophils 0.1 10^3/ul (0-0.6); ABS Lymphocytes 0.9 10^3/ul (1.0-4.8); ABS Monocytes 0.7 10^3/ul (0-0.8); ABS Neutrophils 3.4 10^3/ul (1.5-7.7); Eosinophil % 1.3 %; Hematocrit 24 % (42-52); Hemoglobin 7.7 g/dL (14.0-18.0); Lymphocyte % 18.3 %; Mean Corpuscular HGB Conc 32 g/dL (31-36); Mean Corpuscular Hemoglobin 25 pg (27-31); Mean Corpuscular Volume 78 fL (80-94); Mean Platelet Volume 7.8 fL (7.4-10.4); Nucleated Red Blood Cells % 0.2; Platelet Count 212 10^3/uL (150-450); Red Blood Count 3.09 10^6 /uL (4.18-5.48); Red Cell Distribution Width 22 % (10-15); White Blood Count 5.2 10^3/uL (3.5-10.8)
[2020-03-23] MEDS: Heparin DRIP 25,000 UNITS(*) 25,000 UNITS/500 ML BAG IV SCH ×2 (06:04→17:42)
[2020-03-23] MEDS: Pantoprazole TAB * 40 MG TAB SCH (08:12)
--- NOTE | 2020-03-23 11:36 | PN ---
Subjective Date of Service: 03/23/20 Interval History: Mr. Hernandez is feeling better overall. His stool is getting softer and he thinks he is trending toward diarrhea which typically causes dehydration. He has been having some epistaxis. This has been a longstanding problem for him and he has had cauterizations x2, last in 1991. He has noticed the bleeding to be a bit worse since being on anticoagulation, but remains intermittent and he is not currently bleeding on exam. Has been up ambulating is not having any SOB or CP. No concerns from nursing. Family History: Unchanged from Admission Social History: Unchanged from Admission Past Medical History: Unchanged from Admission Objective Active Medications: Diphenoxylate HCl/Atropine (Lomotil Tab*) 1 tab J TUBE Q6HR PRN DIARRHEA Heparin Sodium (Porcine) (Heparin Vial(*)) 0 units IV .FOR HEPARIN BOLUSES [facility] Heparin Sodium/Dextrose (Heparin Drip 25,000 Units(*)) 25,000 units in 500 mls @ 0 mls/hr IV PER RATE [facility]; Protocol Sodium Chloride (Ns 0.9% 1000 Ml) 1,000 mls @ 75 mls/hr IV PER RATE [facility] Lorazepam (Ativan Tab(*)) 0.5 mg PO Q6HR PRN nausea or anxiety Ondansetron HCl (Zofran Inj*) 4 mg IV Q4H PRN NAUSEA/VOMITING Oxycodone HCl (Oxycodone Oral.Soln*) 10 mg .SEE ORDER Q4HR PRN PAIN - MODERATE Pantoprazole Sodium (Protonix Tab*) 40 mg .SEE ORDER DAILY [facility] Vital Signs - 8 hr 03/23/20 03/23/20 03/23/20 03:35 06:09 07:30 Temperature 98.2 F 98.5 F Pulse Rate 84 85 Respiratory 19 16 17 Rate Blood Pressure 129/73 122/73 (mmHg) O2 Sat by Pulse 97 99 Oximetry Oxygen Devices in Use Now: None Appearance: Middle-aged male lying in bed in NAD Ears/Nose/Mouth/Throat: Mucous Membranes Moist Neck: NL Appearance and Movements; NL JVP, Trachea Midline Respiratory: Symmetrical Chest Expansion and Respiratory Effort, Clear to Auscultation Cardiovascular: NL Sounds; No Murmurs; No JVD, RRR Abdominal: NL Sounds; No Tenderness; No Distention Extremities: No Edema Neurological: Alert and Oriented x 3 Nutrition: TEN Result Diagrams: 03/23/20 05:19 03/21/20 05:02 Assess/Plan/Problems-Billing Assessment: 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 Plan: 1. Pulmonary embolism: Heparin gtt with likely transition to Lovenox tomorrow. 2. Esophageal cancer: Continue J tube feeding and PPI. Plan for outpatient PET next week to determine next course of action. 3. Diarrhea: Lomotil PRN. 4. Epistaxis: Monitor for excessive bleeding. May need another outpatient cauterization if it continues. 5. DVT prophylaxis: Heparin gtt. 6. Code status: Full code. Disposition: Keep on heparin drip over weekend and if no evidence of significant bleeding will transition to Lovenox and d/c on Tuesday. Attending: Crystal Parra
[2020-03-24] MEDS: LORazepam TAB(*) 0.5 MG PO PRN ×3 (01:12→13:50)
[2020-03-24] MEDS: Heparin DRIP 25,000 UNITS(*) 25,000 UNITS/500 ML BAG IV SCH (05:08)
[2020-03-24 05:18] LABS: Hematocrit 24 % (42-52); Hemoglobin 7.5 g/dL (14.0-18.0); Mean Corpuscular HGB Conc 32 g/dL (31-36); Mean Corpuscular Hemoglobin 25 pg (27-31); Mean Corpuscular Volume 77 fL (80-94); Mean Platelet Volume 7.6 fL (7.4-10.4); Platelet Count 251 10^3/uL (150-450); Red Blood Count 3.06 10^6 /uL (4.18-5.48); Red Cell Distribution Width 22 % (10-15); White Blood Count 4.2 10^3/uL (3.5-10.8)
[2020-03-24 05:50] LABS: ABS Eosinophils 0.1 10^3/ul (0-0.6); ABS Lymphocytes 0.9 10^3/ul (1.0-4.8); ABS Monocytes 0.6 10^3/ul (0-0.8); ABS Neutrophils 2.7 10^3/ul (1.5-7.7); Eosinophil % 1.4 %; Lymphocyte % 20.6 %; Nucleated Red Blood Cells % 0.1
[2020-03-24] MEDS: Pantoprazole TAB * 40 MG TAB SCH (07:38)
[2020-03-24] MEDS: NS 0.9% 1000 ML** 1,000 ML IV SCH (07:58)
--- NOTE | 2020-03-24 10:10 | DS ---
- Discharge Summary Admission Date: 03/18/20 Discharge Date: 03/24/20 Discharge Diagnosis: 1. Pulmonary embolism and DVT: secondary to known malignancy and immobility, transition to Lovenox on d/c 2. Elevated troponins: secondary to cardiac strain from above, no evidence for LV strain on echo 3. Tachycardia: related to PE, resolved with anticoagulation 4. Metastatic Esophageal cancer: s/p C2 FOLFOX 03/11, delay C3 in favor of PET imaging to determine response Discharge Medications: Medication Instructions Recorded Confirmed Type Diphenoxylate HCl/Atropine 1 tab PEG TUBE SEE INSTRUCTIONS 03/18/20 03/18/20 History [Lomotil 2.5-0.025 mg Tablet] PRN MDD 6x/day LORazepam [Ativan 0.5 MG TAB] 0.5 mg PO Q6HR PRN 03/18/20 03/18/20 History Omeprazole 40 mg PEG TUBE DAILY 03/18/20 03/18/20 History Ondansetron ODT TAB* [Zofran 4 MG 4 mg PO Q6H PRN 03/18/20 03/18/20 History Odt TAB*] Prochlorperazine 10 mg TAB 10 mg PO Q6H PRN 03/18/20 03/18/20 History [Compazine 10 mg TAB] oxyCODONE *Concentrate* [Oxycodone 10 mg PEG TUBE Q4HR PRN 03/18/20 03/18/20 History *Concentrate* 20 mg/ml] Enoxaparin(*) [Lovenox(*)] 100 mg SUBCUT Q12H #60 syringe 03/24/20 Rx Disposition: Home Condition: Stable Diet: Tube feedings, 2.0 @ 90 mLs/hr via bolus as previously instructed Activity: As tolerated Hospital Course: Please see admission note for full H&P, however, briefly, Mr. Hernandez is well known to our service due his unfortunate diagnosis of metastatic esophageal cancer receiving palliative mFOLFOX s/p C2 on 03/11/20. He presented to the outpatient chemotherapy clinic for supportive hydration on 03/18/20 at which time he had a syncopal episode with hypotension and tachycardia. This was initially felt to be secondary to GI loss with diarrhea and concern for recurrent bleeding at his primary tumor site. He received aggressive hydration in the clinic, however did not improve dramatically and was admitted directly for further supportive care. On admission he had elevated troponins, tachycardia, and hypotension. An echocardiogram revealed EF 55-60%. The following day CTA chest revealed large burden of PEs and a heparin gtt was initiated. Bilat. venous dopplers revealed DVTs. He has improved daily since and has been monitored with daily labs for any evidence of bleeding on anticoagulation. This AM is hemoglobin is 7.5 from 8.5 on 03/20/20, this may be partially dilutional, however known bleeding at tumor site therefore he will receive a unit of PRBCs today. Additionally, he will transition from heparin gtt to subcutaneous Lovenox @ 1mg/kg BID (100 mg sq BID). Following the transfusion and Lovenox teaching he will be discharge home with plan for restaging scans later this week and follow-up with Dr. Champagne on 03/28/20. We will follow labs as an outpatient at least weekly. Plan of care discussed at length, Mr. Hernandez is very glad to be discharged and denies questions and concerns. He is clearly able to state signs and symptoms of bleeding and when to contact the office.
[2020-03-24] MEDS ORDERED: Enoxaparin(*) 100 MG/ML SYR SUBCUT SCH (10:30)
[2020-03-24 16:50] VITALS: BP 136/74
== END 2020-03-24 15:30 | disposition home health service (06) | DRG 134 ==
LOC: CHOAEAST 11:44 → MEDTELE 16:10
PROVIDERS: ADMIT Internal Medicine Hematology & Oncology; ATTEND Internal Medicine Hematology & Oncology
PROC: 30233N1 Transfusion of Nonautologous Red Blood Cells into Peripheral Vein, Percutaneous Approach (ICD-10-PCS; principal; 2020-03-24)
DX: I26.99 Other pulmonary embolism without acute cor pulmonale (principal); K52.1 Toxic gastroenteritis and colitis; C79.9 Secondary malignant neoplasm of unspecified site; C15.5 Malignant neoplasm of lower third of esophagus; I82.433 Acute embolism and thrombosis of popliteal vein, bilateral; I82.412 Acute embolism and thrombosis of left femoral vein; I45.2 Bifascicular block; I95.9 Hypotension, unspecified; R74.8 Abnormal levels of other serum enzymes; R13.10 Dysphagia, unspecified; R00.0 Tachycardia, unspecified; R04.0 Epistaxis; T45.1X5A Adverse effect of antineoplastic and immunosuppressive drugs, initial encounter; D50.0 Iron deficiency anemia secondary to blood loss (chronic); Y92.9 Unspecified place or not applicable; Z79.891 Long term (current) use of opiate analgesic; Z79.899 Other long term (current) drug therapy
CPT/HCPCS: 1036F; 1126F; 36415; 71045; 71275; 80053; 82533; 83735; 84443; 84484; 85014; 85018; 85025; 85730; 86850; 86900; 86901; 86922; 87045; 87046; 87077; 87493; 87899; 93005; 93306; 93970; 96360; 96361; 96372; 99215; 99223; 99232; 99233; 99239; A9270-GY; C8929; G0463; G8427; G9903; J1642; J1644; J1650; J2060; J3490; P9040; Q9967

== ENCOUNTER 2020-04-30 13:52 | Inpatient (IN) ==
[2020-04-30] MEDS ORDERED: Morphine 2 MG/ML SYRINGE ONE (14:07)
[2020-04-30 14:08] LABS: ABS Basophils 0.2 10^3/ul (0-0.2); ABS Lymphocytes 1.5 10^3/ul (1.0-4.8); ABS Monocytes 0.8 10^3/ul (0-0.8); Eosinophil % 0.5 %; Hematocrit 32 % (42-52); Hemoglobin 10.6 g/dL (14.0-18.0); Lymphocyte % 19.8 %; Mean Corpuscular HGB Conc 34 g/dL (31-36); Mean Corpuscular Hemoglobin 28 pg (27-31); Mean Corpuscular Volume 84 fL (80-94); Mean Platelet Volume 6.6 fL (7.4-10.4); Platelet Count 551 10^3/uL (150-450); Red Blood Count 3.75 10^6 /uL (4.18-5.48); Red Cell Distribution Width 24 % (10-15); White Blood Count 7.6 10^3/uL (3.5-10.8)
[2020-04-30] MEDS ORDERED: Ondansetron 4 mg VIAL 2 MG/ML 2 ml VIAL ONE (14:18)
[2020-04-30 14:31] LABS: Albumin 3.3 g/dL (3.2-5.2); BUN/Creatinine Ratio 29.5 (8-20); Calcium 8.8 mg/dL (8.6-10.3); EGFR African American 166.7 (>60); EGFR Non-African American 137.7 (>60); Globulin 3.4 g/dL (2-4); Magnesium 1.8 mg/dL (1.9-2.7); Potassium 3.9 mmol/L (3.5-5.0); Total Bilirubin 0.4 mg/dL (0.2-1.0); Total Protein 6.7 g/dL (6.4-8.9)
[2020-04-30] MEDS ORDERED: Pantoprazole VIAL 40 MG VIAL IV ONE (15:00)
[2020-04-30] MEDS ORDERED: Ondansetron 4 mg VIAL 2 MG/ML 2 ml VIAL IV PRN (15:41)
[2020-04-30] MEDS ORDERED: Morphine 2 MG/ML SYRINGE IV PRN (16:36)
[2020-04-30] MEDS ORDERED: LORazepam 0.5 mg TAB (*) PEG TUBE PRN (16:37)
[2020-04-30] MEDS ORDERED: Diphenoxylat/Atrop 2.5-0.025mg TAB PO PRN (16:37)
[2020-04-30] MEDS ORDERED: fentaNYL PATCH 12 MCG/HR 1 PATCH TRANSDERM SCH (17:30)
[2020-04-30] MEDS: Pantoprazole 80 mg in NS BAG 80 MG/250 ML BAG IV SCH (17:34)
[2020-04-30] MEDS: NS 0.9% 1000 ml BAG 1,000 ML IV SCH (18:18)
[2020-04-30 21:32] LABS: Hematocrit 28 % (42-52); Hemoglobin 8.8 g/dL (14.0-18.0)
[2020-05-01] MEDS: fentaNYL Patch Check Q Shift NOTE FOLLOW UP SCH ×3 (01:44→18:46)
[2020-05-01] MEDS: NS 0.9% 1000 ml BAG 1,000 ML IV SCH ×2 (04:48→19:24)
[2020-05-01] MEDS: Pantoprazole 80 mg in NS BAG 80 MG/250 ML BAG IV SCH ×2 (04:53→14:06)
[2020-05-01 05:29] LABS: Hematocrit 26 % (42-52); Hemoglobin 8.6 g/dL (14.0-18.0); Mean Corpuscular HGB Conc 33 g/dL (31-36); Mean Corpuscular Hemoglobin 29 pg (27-31); Mean Corpuscular Volume 86 fL (80-94); Mean Platelet Volume 6.8 fL (7.4-10.4); Platelet Count 420 10^3/uL (150-450); Red Cell Distribution Width 22 % (10-15); White Blood Count 11.9 10^3/uL (3.5-10.8)
[2020-05-01 05:37] LABS: Albumin 2.8 g/dL (3.2-5.2); Albumin/Globulin Ratio 1.1 (1-3); BUN/Creatinine Ratio 44.3 (8-20); Calcium 8.4 mg/dL (8.6-10.3); EGFR African American 166.7 (>60); EGFR Non-African American 137.7 (>60); Globulin 2.6 g/dL (2-4); Potassium 4.9 mmol/L (3.5-5.0); Total Bilirubin 0.5 mg/dL (0.2-1.0); Total Protein 5.4 g/dL (6.4-8.9)
[2020-05-01 06:15] LABS: ABS Basophils 0.1 10^3/ul (0-0.2); ABS Lymphocytes 0.9 10^3/ul (1.0-4.8); ABS Monocytes 0.8 10^3/ul (0-0.8); Eosinophil % 0.1 %; Lymphocyte % 8.3 %; Nucleated Red Blood Cells % 0.1
[2020-05-01] MEDS ORDERED: NS 0.9% 500 ml BAG 500 ML IV ONE (07:00)
[2020-05-01] MEDS ORDERED: Naloxone 0.4 mg VIAL 0.4 mg/ml 1 ml VIAL ONE (07:48)
[2020-05-01] MEDS ORDERED: fentaNYL 100 mcg/2 ml 50 MCG/ML VIAL ONE (07:48)
[2020-05-01] MEDS ORDERED: Heparin 2 UNITS/ML 1000 mls 1,000 ML IV ONE (07:50)
[2020-05-01 14:47] LABS: ABS Lymphocytes 1.1 10^3/ul (1.0-4.8); ABS Monocytes 0.7 10^3/ul (0-0.8); Hematocrit 24 % (42-52); Hemoglobin 7.8 g/dL (14.0-18.0); Lymphocyte % 14.5 %; Mean Corpuscular HGB Conc 33 g/dL (31-36); Mean Corpuscular Hemoglobin 29 pg (27-31); Mean Corpuscular Volume 85 fL (80-94); Mean Platelet Volume 6.4 fL (7.4-10.4); Platelet Count 404 10^3/uL (150-450); Red Blood Count 2.75 10^6 /uL (4.18-5.48); Red Cell Distribution Width 22 % (10-15); White Blood Count 7.8 10^3/uL (3.5-10.8)
[2020-05-02] MEDS: Pantoprazole 80 mg in NS BAG 80 MG/250 ML BAG IV SCH ×3 (00:30→22:03)
[2020-05-02] MEDS: NS 0.9% 1000 ml BAG 1,000 ML IV SCH ×3 (05:29→18:00)
[2020-05-02 06:02] LABS: ABS Lymphocytes 0.7 10^3/ul (1.0-4.8); ABS Monocytes 0.8 10^3/ul (0-0.8); Eosinophil % 0.1 %; Hematocrit 22 % (42-52); Hemoglobin 7.5 g/dL (14.0-18.0); Lymphocyte % 10.6 %; Mean Corpuscular HGB Conc 34 g/dL (31-36); Mean Corpuscular Hemoglobin 29 pg (27-31); Mean Corpuscular Volume 85 fL (80-94); Mean Platelet Volume 6.6 fL (7.4-10.4); Nucleated Red Blood Cells % 0.1; Platelet Count 347 10^3/uL (150-450); Red Cell Distribution Width 21 % (10-15)
[2020-05-02 06:08] LABS: INR 1.23 (0.82-1.09)
[2020-05-02 06:20] LABS: Albumin 2.7 g/dL (3.2-5.2); Albumin/Globulin Ratio 1.1 (1-3); BUN/Creatinine Ratio 47.9 (8-20); Calcium 8.1 mg/dL (8.6-10.3); EGFR African American 219.8 (>60); EGFR Non-African American 181.6 (>60); Globulin 2.4 g/dL (2-4); Magnesium 1.8 mg/dL (1.9-2.7); Potassium 3.6 mmol/L (3.5-5.0); Total Bilirubin 0.6 mg/dL (0.2-1.0); Total Protein 5.1 g/dL (6.4-8.9)
[2020-05-02] MEDS: fentaNYL Patch Check Q Shift NOTE FOLLOW UP SCH ×2 (06:46→19:25)
[2020-05-02] MEDS ORDERED: Magnesium Sulfate 2 gm BAG 2 GM/50 ML BAG IVPB ONE (07:41)
[2020-05-02 18:50] LABS: Hematocrit 26 % (42-52); Hemoglobin 8.9 g/dL (14.0-18.0); Mean Corpuscular HGB Conc 35 g/dL (31-36); Mean Corpuscular Hemoglobin 30 pg (27-31); Mean Corpuscular Volume 87 fL (80-94); Mean Platelet Volume 6.4 fL (7.4-10.4); Platelet Count 310 10^3/uL (150-450); Red Blood Count 2.99 10^6 /uL (4.18-5.48); Red Cell Distribution Width 20 % (10-15); White Blood Count 6.9 10^3/uL (3.5-10.8)
[2020-05-02 18:56] LABS: ABS Basophils 0.1 10^3/ul (0-0.2); ABS Lymphocytes 0.9 10^3/ul (1.0-4.8); ABS Monocytes 0.8 10^3/ul (0-0.8); Eosinophil % 0.1 %; Lymphocyte % 12.4 %; Nucleated Red Blood Cells % 0.1
[2020-05-02 19:16] LABS: Activated Partial Thrombo Time 23.3 seconds (26.0-38.0); Fibrinogen 470.7 mg/dL (110.8-404.3); INR 1.23 (0.82-1.09)
[2020-05-03 06:17] LABS: Hematocrit 25 % (42-52); Hemoglobin 8.7 g/dL (14.0-18.0); Mean Corpuscular HGB Conc 34 g/dL (31-36); Mean Corpuscular Hemoglobin 30 pg (27-31); Mean Corpuscular Volume 87 fL (80-94); Mean Platelet Volume 6.4 fL (7.4-10.4); Platelet Count 334 10^3/uL (150-450); Red Blood Count 2.93 10^6 /uL (4.18-5.48); Red Cell Distribution Width 19 % (10-15); White Blood Count 6.1 10^3/uL (3.5-10.8)
[2020-05-03 06:34] LABS: Albumin 2.8 g/dL (3.2-5.2); Albumin/Globulin Ratio 1.2 (1-3); BUN/Creatinine Ratio 41.9 (8-20); EGFR African American 249.5 (>60); EGFR Non-African American 206.2 (>60); Globulin 2.3 g/dL (2-4); Magnesium 1.8 mg/dL (1.9-2.7); Potassium 3.2 mmol/L (3.5-5.0); Total Bilirubin 0.6 mg/dL (0.2-1.0); Total Protein 5.1 g/dL (6.4-8.9)
[2020-05-03] MEDS: NS 0.9% 1000 ml BAG 1,000 ML IV SCH (07:23)
[2020-05-03] MEDS: fentaNYL Patch Check Q Shift NOTE FOLLOW UP SCH (07:29)
[2020-05-03 08:33] VITALS: BP 128/61
[2020-05-03 10:10] LABS: ABS Lymphocytes 0.8 10^3/ul (1.0-4.8); ABS Monocytes 0.7 10^3/ul (0-0.8); Acanthocytes 1+; Eosinophil % 0.2 %; Lymphocyte % 13.2 %; Nucleated Red Blood Cells % 0.1
== END 2020-05-03 10:30 | disposition home or self-care (01) | DRG 240 ==
LOC: CHOA 13:52 → SSU 13:52
PROVIDERS: ADMIT Internal Medicine Hematology & Oncology; ATTEND Internal Medicine Hematology & Oncology